=== PATIENT | female | born 1970 | race Caucasian/White ===

== ENCOUNTER 2020-10-20 00:39 | Emergency (ER) | payer SELFPAY ==
[~2020-10-20] VITALS: Ht 170.2 cm; Wt 92.5 kg
[2020-10-20 00:39] VITALS: BP 165/78
--- NOTE | 2020-10-20 00:41 | NUR ---
OLLIE ALS TAKEN TO BED #3
--- NOTE | 2020-10-20 00:41 | NUR ---
49 YR OLD FEMALE BIBA WITH CC OF ALLERGIC REACTION. PT IS AOX4. PT STATES "THROAT FELT LIKE CLOSING UP". PT STATES TAKING BENEDRYL BEFORE CALLING EMS. PT LUNG SOUNDS CLEAR BILATERALLY WITH EQUAL RISE AND FALL UPON RESPIRATION. PT THROAT IS NOT SWOLLEN. PT TONGUE IS NOT SWOLLEN. PT DOES NOT HAVE RASHES. PT DENIES OTHER MEDICAL COMPLAINTS. BED LOCKED IN LOWEST POSITION WITH 2 SIDE RAILS UP FOR SAFETY. CALL LIGHT WITHIN REACH. WILL COTNINUE TO MONITOR. HISTORY- ASTHMA ALLERGIES- NONE
[2020-10-20] MEDS ORDERED: predniSONE 20 MG TAB PO ONE (00:50)
--- NOTE | 2020-10-20 01:12 | NUR ---
per pt authorization, spoke w/ regarding pt status at this time.
--- NOTE | 2020-10-20 01:20 | NUR ---
MICHAEL Mccarthyaw at bedside for medical evaluation.
[2020-10-20 02:16] VITALS: BP 122/78
--- NOTE | 2020-10-20 02:16 | NUR ---
Patient discharged by Dr. Tamayo with v/s stable. Written and verbal after care instructions given and explained. Patient alert, oriented and verbalized understanding of instructions to Dr. Tamayo. Ambulatory with steady gait. All questions addressed by Dr. Tamayo prior to discharge. ID band removed. Patient advised to follow up with PMD. Rx of Prednisone given. Patient educated on indication of medication including possible reaction and side effects. Opportunity to ask questions provided and answered.
== END 2020-10-20 02:16 | disposition home or self-care (01) ==
LOC: MED 00:39
DX: T78.1XXA Other adverse food reactions, not elsewhere classified, initial encounter (principal); R06.02 Shortness of breath; J45.909 Unspecified asthma, uncomplicated; X58.XXXA Exposure to other specified factors, initial encounter
CPT/HCPCS: 99291; J7512; 99283